=== PATIENT | male | born 1960 | race Caucasian/White ===

== ENCOUNTER 2018-07-14 05:32 | Inpatient (IN) | payer MEDICARE, MEDICAID ==
[2018-07-06 17:02] LABS: BASOPHILS % (AUTO) 0.4 % (0-1); EOSINOPHILS # (AUTO) 0.2 X10'3 (0-0.9); EOSINOPHILS % (AUTO) 2.3 % (0-6); LYMPHOCYTES % (AUTO) 34.3 % (21-51); MEAN CORPUSCULAR HEMOGLOBIN 29.4 PG (27.0-31.0); MEAN CORPUSCULAR HGB CONC 32.8 g/dL (33.0-36.5); MEAN CORPUSCULAR VOLUME 89.7 FL (78-98); MEAN PLATELET VOLUME 8.5 FL (7.4-10.4); MONOCYTES # (AUTO) 0.7 X10'3 (0-0.9); MONOCYTES % (AUTO) 7.6 % (2-12); NEUTROPHILS # (AUTO) 4.9 X10'3 (1.8-7.7); NEUTROPHILS % (AUTO) 55.4 % (42-75); PRE OP HEMOGLOBIN 12.8 g/dL (14.0-17.9); PRE OP PLATELET COUNT 192 X10'3 (140-440); RED BLOOD COUNT 4.35 X10'6 (4.70-6.10); RED CELL DISTRIBUTION WIDTH 15.3 % (11.5-14.5)
[2018-07-06 17:18] LABS: ALBUMIN 3.8 G/DL (3.4-5.0); ALBUMIN/GLOBULIN RATIO 1.1 (1.1-1.5); ALKALINE PHOSPHATASE 77 IU/L (46-116); BLOOD UREA NITROGEN 24 MG/DL (7-18); BUN/CREATININE RATIO 20.7 (5.4-32.0); CALCIUM 9.3 MG/DL (8.5-10.1); CHLORIDE 106 MMOL/L (99-107); CREATININE 1.16 MG/DL (0.60-1.10); PRE OP ALT 24 U/L (30-65); PRE OP ANION GAP 7 (8-16); PRE OP AST 14 U/L (10-37); PRE OP BILIRUB, TOTAL 0.2 MG/DL (0.0-1.0); PRE OP GLUCOSE 67 MG/DL (70-104); PRE OP POTASSIUM 4.4 MMOL/L (3.4-5.1); PRE OP SODIUM 144 MMOL/L (135-145); TOTAL CARBON DIOXIDE 31.3 MMOL/L (24-32); TOTAL PROTEIN 7.2 G/DL (6.4-8.2); eGFR 64 ML/MIN
[2018-07-06 17:22] LABS: HEMOGLOBIN A1C 6.9 % (4.5-6.2)
[2018-07-06 17:54] LABS: PRE OP INR 1.1 INR; PRE OP PROTIME 10.7 SECONDS (9.0-12.0)
[~2018-07-14] VITALS: Ht 182.9 cm; Wt 117.3 kg
[2018-07-14] VITALS (28 sets, daily range): BP systolic 89–178; BP diastolic 46–96
[~2018-07-14 05:32] MED LIST: ALBU8.5H8 INH; ASPI-1265 PO; ATOR40TA PO; CHOL2000 PO; DOCUMENT DATE & TIME OF BETA-BLOCKER PO ONE; DOL10T PO; GLIM4TAB79 PO; HYDR-4384 PO; INUL1.5T3; LANTUS SQ; MAGN400C PO; METO-539 PO; PANT40TA4 PO; PARO20TA6 PO; TACR0.5P PO; TACR1CAP PO; TRAZ-219 PO; TRAZ150T78 PO; VANCOMYCIN INJ 1000 MG in NORMAL SALINE 250ml IV.SOLN IV ONE; albuterol 2.5 MG/3 ML nebule NEB ONE; cefazolin/dext.iso 2gm/100 ML IV ONE; famotidine 20mg tablet PO ONE; ringers solution, lacted 1,000 ML IV SCH; tranexamic acid inj. 1,200 MG in normal saline 100ml IV soln 100 ML IV ONE
[2018-07-14] MEDS ORDERED: LIDOcaine 1% (10mg/ml) 2ml vial ONE (05:47)
[2018-07-14] MEDS ORDERED: metoprolol tartrate 25mg tablet PO STA (06:08)
[2018-07-14] MEDS ORDERED: ROPIVAcaine 0.5% (5mg/ml) 30ml vial ONE (07:43)
[2018-07-14] MEDS ORDERED: tetracaine 1% (10mg/ml) pres. free inj. ONE (07:43)
[2018-07-14] MEDS ORDERED: MIDAZolam 1mg/ml 10ml vial ONE (07:46)
[2018-07-14] MEDS ORDERED: fentaNYL/PF 50MCG/1 ML 2ML syringe ONE (07:47)
[2018-07-14] MEDS ORDERED: ROPIVAcaine inj 200 MG in normal saline 100ml IV soln 60 ML IU ONE (08:30)
[2018-07-14] MEDS ORDERED: ringers solution, lacted 1,000 ML IV SCH ×2 (09:24→12:15)
[2018-07-14] MEDS ORDERED: ondansetron/PF 4mg/2ml inj IV PRN ×3 (09:25→13:55)
[2018-07-14] MEDS ORDERED: proCHLORperazine 10 MG/2 ml inj IV PRN (09:25)
[2018-07-14] MEDS ORDERED: meperidine/PF 25mg/ml syringe IV PRN ×3 (09:25)
[2018-07-14] MEDS ORDERED: morphine 4 MG/ML inj SYRINge IV PRN ×2 (09:25)
[2018-07-14] MEDS ORDERED: propofol inj 20 ML IV ONE ×2 (10:11)
--- NOTE | 2018-07-14 11:21 | NUR ---
Received from OR via , accompanied by Anesthesiologist DR MAHER and report given by Anesthesiolgist. AWAKENS TO VOICE. VITALS STABLE. DRESSING DI. VANIA KNEE PAIN. SENSATION AT THE HIPS. MAYORGA WITH CLEAR URINE.
[2018-07-14] MEDS: ROPIVAcaine 0.2%/PF PAIN PUMP 400 ML IJ SCH (12:04)
[2018-07-14] MEDS ORDERED: hydrALAZINE 20mg/ml inj. IV PRN (12:15)
[2018-07-14] MEDS ORDERED: HYDROmorphone inj. 0.5 MG/0.5 ML DISP.SYRIN IV PRN (13:55)
[2018-07-14] MEDS ORDERED: bisacodyl 10mg suppository rectal RC PRN (13:55)
[2018-07-14] MEDS ORDERED: HYDROCODONE BIT PO PRN (13:55)
[2018-07-14] MEDS ORDERED: acetaminophen 325mg tablet PO PRN (13:55)
[2018-07-14] MEDS ORDERED: ACETAMINOPHEN PO PRN (13:55)
[2018-07-14] MEDS ORDERED: diphenhydrAMINE 25mg capsule PO PRN ×2 (13:55)
[2018-07-14] MEDS ORDERED: HYDROmorphone 1 mg/ml syringe IV PRN (13:55)
[2018-07-14] MEDS ORDERED: magnesium hydroxide 30ml (MOM) UD suspension PO PRN (13:55)
[2018-07-14] MEDS ORDERED: non-formulary drug (Albuterol Sulfate (Proair Hfa) 2 PUFFS) INH PRN (13:55)
[2018-07-14] MEDS ORDERED: oxyCODONE IR 5mg (immed. release) tablet PO PRN (13:55)
--- NOTE | 2018-07-14 14:00 | NUR ---
Patient in room ORTHO 4013. I have received report from Jimmy APODACA in recovery, and had the opportunity to ask questions and assume patient care.
--- NOTE | 2018-07-14 14:03 | NUR ---
Patient in room PAS IN 900. I have received report from CONSTANZA Marquez in recovery, and had the opportunity to ask questions and assume patient care.
[2018-07-14] MEDS ORDERED: albuterol 2.5 MG/3 ML nebule NEB PRN (14:10)
--- NOTE | 2018-07-14 14:11 | NUR ---
Report called to receiving nurse. Transferred via BED Belongings . Special Issues communicated to receiving nurse. AWAKE AND ORIENTED. VITALS STABLE. DRESSING DI. STATES PAIN IMPROVING. STARTING TO MOVE LEGS. TO ORTHO RM 4013B AT THIS TIME.
[2018-07-14] MEDS ORDERED: tranexamic acid inj. 1,200 MG in normal saline 100ml IV soln 100 ML IV ONE (14:45)
[2018-07-14] MEDS: acetaminophen 325mg tablet PO SCH ×2 (14:54→20:14)
[2018-07-14] MEDS: ketorolac tromethamine 15mg/ml inj. IV SCH ×2 (14:54→19:55)
[2018-07-14] MEDS: potassium cl 20mEq in 1/2 NS 1,000 ML IV SCH (17:21)
[2018-07-14] MEDS: ceFAZolin 1GM/D5W- ADD-VANTAGE 50 ML IV SCH (17:22)
--- NOTE | 2018-07-14 18:19 | NUR ---
Problems reprioritized. Patient report given, questions answered & plan of care reviewed with Faina Melendez RN.
[2018-07-14] MEDS: magnesium oxide 400mg tablet PO SCH (19:53)
[2018-07-14] MEDS ORDERED: non-formulary drug (Magnesium Oxide (Magnesium) 1 CAP) PO SCH (20:00)
[2018-07-14] MEDS ORDERED: vancomycin/NS 1 GM ADD-VANTAGE 250 ML IV SCH (20:00)
[2018-07-14] MEDS ORDERED: methadone 10mg tablet PO SCH (20:00)
[2018-07-14] MEDS: tacrolimus anhydrous 1mg capsule PO SCH (20:05)
[2018-07-14] MEDS: sennosides 8.6mg tablet PO SCH (20:13)
[2018-07-14] MEDS: atorvastatin 20mg tablet PO SCH (20:14)
[2018-07-14] MEDS: gabapentin 300mg capsule PO SCH (20:14)
[2018-07-14] MEDS: traZODone 150mg tablet PO SCH (20:16)
[2018-07-14] MEDS ORDERED: traZODone 150mg tablet PO SCH (21:00)
[2018-07-14] MEDS ORDERED: TRAZODONE HCL PO SCH (21:00)
[2018-07-14] MEDS ORDERED: non-formulary drug (Atorvastatin Calcium* (Lipitor*) 0.5 TABLET) PO SCH (21:00)
--- NOTE | 2018-07-14 21:36 | NUR ---
Patient in room ORTHO 4013. I have received report from Alma Delia APODACA and had the opportunity to ask questions and assume patient care. Addendum: 07/14/18 at 9629 by Carmen Dubose RN Received report at [id number]
--- NOTE | 2018-07-14 23:00 | NUR ---
Pt's berman catheter DC'd. Pt tolerated well. Pericare provided. No pain or signs of infection.
[2018-07-15] MEDS: ceFAZolin 1GM/D5W- ADD-VANTAGE 50 ML IV SCH (00:57)
[2018-07-15] MEDS: acetaminophen 325mg tablet PO SCH ×4 (01:59→19:20)
[2018-07-15] MEDS: ketorolac tromethamine 15mg/ml inj. IV SCH ×2 (02:01→08:18)
[2018-07-15 02:09] VITALS: BP 98/45
[2018-07-15] MEDS: potassium cl 20mEq in 1/2 NS 1,000 ML IV SCH ×3 (03:45→12:40)
[2018-07-15] MEDS: oxyCODONE IR 5mg (immed. release) tablet PO PRN (05:32)
[2018-07-15] MEDS: ROPIVAcaine 0.2%/PF PAIN PUMP 400 ML IJ SCH (05:33)
--- NOTE | 2018-07-15 05:34 | NUR ---
Increased ON-Q from 4 to 6.
[2018-07-15 06:00] VITALS: BP 92/41
--- NOTE | 2018-07-15 06:10 | NUR ---
Patient in room ORTHO 4013. I have received report from CONSTANZA Morales and had the opportunity to ask questions and assume patient care.
--- NOTE | 2018-07-15 06:28 | NUR ---
Problems reprioritized. Patient report given to Alma Delia APODACA, questions answered & plan of care reviewed with .
--- NOTE | 2018-07-15 06:30 | NUR ---
I have reviewed and agree with all interventions, assessments performed and documented by CONSTANZA Morales.
--- NOTE | 2018-07-15 06:30 | NUR ---
I have reviewed and agree with all medications administered and interventions performed by preceptor CONSTANZA Morales.
[2018-07-15 06:46] LABS: BASOPHILS % (AUTO) 0.2 % (0-1); EOSINOPHILS # (AUTO) 0.1 X10'3 (0-0.9); EOSINOPHILS % (AUTO) 1.4 % (0-6); HEMOGLOBIN 10.3 g/dl (14.0-17.9); LYMPHOCYTES # (AUTO) 2.1 X10'3 (1.1-4.8); LYMPHOCYTES % (AUTO) 20.1 % (21-51); MEAN CORPUSCULAR HEMOGLOBIN 29.9 PG (27.0-31.0); MEAN CORPUSCULAR HGB CONC 33.2 g/dL (33.0-36.5); MEAN CORPUSCULAR VOLUME 90.1 FL (78-98); MEAN PLATELET VOLUME 8.8 FL (7.4-10.4); MONOCYTES % (AUTO) 9.8 % (2-12); NEUTROPHILS % (AUTO) 68.5 % (42-75); PLATELET COUNT 150 X10'3 (140-440); RED BLOOD COUNT 3.44 X10'6 (4.70-6.10); RED CELL DISTRIBUTION WIDTH 15.3 % (11.5-14.5); WHITE BLOOD COUNT 10.2 X10'3 (4.5-11.0)
[2018-07-15 07:05] LABS: ANION GAP 6 (8-16); CHLORIDE 105 MMOL/L (99-107); POTASSIUM 5.1 MMOL/L (3.5-5.1); SODIUM 138 MMOL/L (135-145)
[2018-07-15] MEDS: PARoxetine 10mg tablet PO SCH (08:00)
[2018-07-15] MEDS ORDERED: non-formulary drug (Cholecalciferol (Vitamin D3) (Vitamin D-3) 2,000 UNIT) PO SCH (08:00)
[2018-07-15] MEDS: aspirin 81mg tab.chew PO SCH (08:00)
[2018-07-15] MEDS ORDERED: TACROLIMUS ANHYDROUS PO SCH (08:00)
[2018-07-15] MEDS: methadone 10mg tablet PO SCH (08:18)
[2018-07-15] MEDS: magnesium oxide 400mg tablet PO SCH ×2 (08:18→19:20)
[2018-07-15] MEDS: gabapentin 300mg capsule PO SCH ×3 (08:18→21:26)
[2018-07-15] MEDS: tacrolimus anhydrous 1mg capsule PO SCH ×2 (08:19→21:26)
[2018-07-15] MEDS: pantoprazole 40mg Tablet.DR PO SCH (08:20)
[2018-07-15] MEDS: metoprolol succinate 25mg (24-HOUR) SR. Tablet PO SCH (08:20)
[2018-07-15] MEDS: vitamin D (cholecalciferol) 1,000 unit tablet PO SCH (08:21)
[2018-07-15] MEDS: insulin glargine (Lantus) pen - multi-dose SQ SCH (08:23)
[2018-07-15] MEDS: aspirin 325mg tablet PO SCH (08:24)
[2018-07-15 10:00] VITALS: BP 109/82
[2018-07-15] MEDS ORDERED: methadone 10mg tablet PO SCH ×3 (11:00→21:00)
--- NOTE | 2018-07-15 11:04 | NUR ---
DM consult: Patient's A1c is 6.9; DM ed not warranted at this time. Will continue to follow. Addendum: 07/15/18 at [address] Amended: Links added.
[2018-07-15 13:21] VITALS: BP 103/48
[2018-07-15 18:00] VITALS: BP 91/40
--- NOTE | 2018-07-15 18:25 | NUR ---
Patient in room ORTHO 4013B. I have received report from Alma Delia APODACA, and had the opportunity to ask questions and assume patient care.
[2018-07-15] MEDS: celeCOXIB 100mg capsule PO SCH (19:18)
--- NOTE | 2018-07-15 20:50 | NUR ---
Took over care of patient with Carmen APODACA who is on orientation at this time.
[2018-07-15] MEDS: atorvastatin 20mg tablet PO SCH (21:26)
[2018-07-15] MEDS: sennosides 8.6mg tablet PO SCH (21:26)
[2018-07-15] MEDS: traZODone 150mg tablet PO SCH (21:27)
[2018-07-15 22:00] VITALS: BP 121/54
[2018-07-16] MEDS: acetaminophen 325mg tablet PO SCH ×2 (02:39→08:22)
[2018-07-16 05:00] VITALS: BP 99/45
[2018-07-16] MEDS: oxyCODONE IR 5mg (immed. release) tablet PO PRN (05:13)
--- NOTE | 2018-07-16 06:05 | NUR ---
Patient in room ORTHO 4013. I have received report from CONSTANZA Morales and had the opportunity to ask questions and assume patient care.
[2018-07-16 06:23] LABS: BASOPHILS % (AUTO) 0.2 % (0-1); EOSINOPHILS # (AUTO) 0.1 X10'3 (0-0.9); EOSINOPHILS % (AUTO) 1.3 % (0-6); HEMATOCRIT 28.2 % (42.0-52.0); HEMOGLOBIN 9.6 g/dl (14.0-17.9); LYMPHOCYTES # (AUTO) 1.5 X10'3 (1.1-4.8); LYMPHOCYTES % (AUTO) 17.2 % (21-51); MEAN CORPUSCULAR HEMOGLOBIN 30.9 PG (27.0-31.0); MEAN CORPUSCULAR VOLUME 90.9 FL (78-98); MONOCYTES % (AUTO) 10.9 % (2-12); NEUTROPHILS # (AUTO) 6.2 X10'3 (1.8-7.7); NEUTROPHILS % (AUTO) 70.4 % (42-75); PLATELET COUNT 125 X10'3 (140-440); RED BLOOD COUNT 3.11 X10'6 (4.70-6.10); RED CELL DISTRIBUTION WIDTH 15.5 % (11.5-14.5); WHITE BLOOD COUNT 8.8 X10'3 (4.5-11.0)
[2018-07-16] MEDS ORDERED: dextrose ORAL solution 15 GM/59 ML bottle PO ONE (08:00)
[2018-07-16] MEDS: PARoxetine 10mg tablet PO SCH (08:00)
[2018-07-16] MEDS: aspirin 81mg tab.chew PO SCH (08:00)
[2018-07-16] MEDS: insulin glargine (Lantus) pen - multi-dose SQ SCH (08:00)
--- NOTE | 2018-07-16 08:05 | NUR ---
Pt's BG was 65, no hypo/hyperglycemic protocol, called MD, obtained order, oral glucose shot (one), pt already on oral diabetic medications
[2018-07-16] MEDS: celeCOXIB 100mg capsule PO SCH (08:20)
[2018-07-16] MEDS: methadone 10mg tablet PO SCH (08:20)
[2018-07-16] MEDS: pantoprazole 40mg Tablet.DR PO SCH (08:21)
[2018-07-16] MEDS: magnesium oxide 400mg tablet PO SCH (08:21)
[2018-07-16] MEDS: gabapentin 300mg capsule PO SCH (08:21)
[2018-07-16] MEDS: tacrolimus anhydrous 1mg capsule PO SCH (08:21)
[2018-07-16] MEDS: vitamin D (cholecalciferol) 1,000 unit tablet PO SCH (08:23)
[2018-07-16] MEDS: aspirin 325mg tablet PO SCH (08:23)
[2018-07-16] MEDS: metoprolol succinate 25mg (24-HOUR) SR. Tablet PO SCH (08:24)
--- NOTE | 2018-07-16 11:45 | NUR ---
Reviewed discharge instructions with pt. Pt verbalized understanding. All of pt's belongings were returned to pt. Pt is alert and oriented, no complaints of pain or discomfort at this time. Pt was wheeled downstairs to be driven home by family friend.
[2018-07-16] MEDS ORDERED: acetaminophen 325mg tablet PO PRN (13:55)
== END 2018-07-16 11:57 | disposition home or self-care (01) | DRG 467 ==
LOC: PAS IN 05:32 → EDSTATUS 10:30 → ORTHO 4S 14:00
PROVIDERS: ADMIT Orthopaedic Surgery; ATTEND Orthopaedic Surgery
PROC: 0SRC0J9 Replacement of Right Knee Joint with Synthetic Substitute, Cemented, Open Approach (ICD-10-PCS; 2018-07-14)
PROC: 8E0Y0CZ Robotic Assisted Procedure of Lower Extremity, Open Approach (ICD-10-PCS; 2018-07-14)
PROC: 8E0YXBZ Computer Assisted Procedure of Lower Extremity (ICD-10-PCS; 2018-07-14)
PROC: 3E0T3BZ Introduction of Anesthetic Agent into Peripheral Nerves and Plexi, Percutaneous Approach (ICD-10-PCS; 2018-07-14)
PROC: 0SPC0LZ Removal of Medial Unicondylar Synthetic Substitute from Right Knee Joint, Open Approach (ICD-10-PCS; principal; 2018-07-14 07:51)
DX: M17.11 Unilateral primary osteoarthritis, right knee (principal); D62 Acute posthemorrhagic anemia; Z94.4 Liver transplant status; F11.20 Opioid dependence, uncomplicated; E11.9 Type 2 diabetes mellitus without complications; E78.5 Hyperlipidemia, unspecified; K21.9 Gastro-esophageal reflux disease without esophagitis; F32.9 Major depressive disorder, single episode, unspecified; J44.9 Chronic obstructive pulmonary disease, unspecified; G89.29 Other chronic pain; Z96.651 Presence of right artificial knee joint
CPT/HCPCS: 36415; 71046; 80051; 80053; 82948; 83036; 85025; 85610; 85730; 87070; 94640; 94760; 97116; 97162; 97530; A6455; A7000; C1713; C1758; C1776; G0378; J0360; J0690; J1815; J1885; J2175; J2250; J2270; J2405; J2704; J2795; J3010; J3370; J3490; J7030; J7120; J7507

== ENCOUNTER 2021-01-13 13:05 | Emergency (ER) | payer MEDICARE, MEDICAID ==
[~2021-01-13] VITALS: Ht 185.4 cm; Wt 124.5 kg
[~2021-01-13 13:05] MED LIST changes: +ALBU8.5H17 INH; -ALBU8.5H8 INH; +BUDE10.2 INH; -DOCUMENT DATE & TIME OF BETA-BLOCKER PO ONE; -DOL10T PO; +GABA600T13 PO; +GLIM4TAB7 PO; -GLIM4TAB79 PO; +HYDR-3972 PO; -HYDR-4384 PO; -INUL1.5T3; +INUL1.5T3 PO; +METF500T PO; +MORP-92 PO; +MULT-1085 PO; -PANT40TA4 PO; +PANT40TA54 PO; -PARO20TA6 PO; -TACR0.5P PO; -TRAZ-219 PO; -VANCOMYCIN INJ 1000 MG in NORMAL SALINE 250ml IV.SOLN IV ONE; -albuterol 2.5 MG/3 ML nebule NEB ONE; -cefazolin/dext.iso 2gm/100 ML IV ONE; -famotidine 20mg tablet PO ONE; -ringers solution, lacted 1,000 ML IV SCH; -tranexamic acid inj. 1,200 MG in normal saline 100ml IV soln 100 ML IV ONE
[2021-01-13 13:12] VITALS: BP 123/89
[2021-01-13] MEDS ORDERED: IOHEXOL 12MG/ML oral solution 500 ML BOTTLE PO ONE ×2 (13:20→13:32)
[2021-01-13 13:44] LABS: BASOPHILS % (AUTO) 0.3 % (0-1); EOSINOPHILS # (AUTO) 0.2 X10'3 (0-0.9); EOSINOPHILS % (AUTO) 2.3 % (0-6); HEMATOCRIT 39.6 % (42.0-52.0); HEMOGLOBIN 13.3 g/dl (14.0-17.9); LYMPHOCYTES # (AUTO) 2.5 X10'3 (1.1-4.8); LYMPHOCYTES % (AUTO) 26.9 % (21-51); MEAN CORPUSCULAR HGB CONC 33.6 g/dL (33.0-36.5); MEAN CORPUSCULAR VOLUME 89.4 FL (78-98); MEAN PLATELET VOLUME 8.3 FL (7.4-10.4); MONOCYTES # (AUTO) 0.8 X10'3 (0-0.9); NEUTROPHILS # (AUTO) 5.9 X10'3 (1.8-7.7); NEUTROPHILS % (AUTO) 62.5 % (42-75); PLATELET COUNT 285 X10'3 (140-440); RED BLOOD COUNT 4.44 X10'6 (4.70-6.10); RED CELL DISTRIBUTION WIDTH 15.2 % (11.5-14.5); WHITE BLOOD COUNT 9.4 X10'3 (4.5-11.0)
[2021-01-13 13:54] LABS: ALANINE AMINOTRANSFERASE 27 U/L (12-78); ALBUMIN 3.8 G/DL (3.4-5.0); ALBUMIN/GLOBULIN RATIO 0.9 (1.1-1.5); ALKALINE PHOSPHATASE 84 IU/L (46-116); ANION GAP 10 (8-16); ASPARTATE AMINO TRANSFERASE 13 U/L (10-37); BILIRUBIN,TOTAL 0.3 MG/DL (0.1-1.0); BLOOD UREA NITROGEN 22 MG/DL (7-18); BUN/CREATININE RATIO 19.6 (5.4-32.0); CALCIUM 9.5 MG/DL (8.5-10.1); CHLORIDE 104 MMOL/L (99-107); CREATININE 1.12 MG/DL (0.60-1.10); GLUCOSE 167 MG/DL (70-104); LIPASE 66 U/L (73-393); POTASSIUM 4.5 MMOL/L (3.5-5.1); SODIUM 140 MMOL/L (135-145); TOTAL CARBON DIOXIDE 26.4 MMOL/L (24-32); TOTAL PROTEIN 7.9 G/DL (6.4-8.2); eGFR 66 ML/MIN
[2021-01-13 15:21] LABS: CLARITY,URINE CLOUDY (Clear); COLOR,URINE YELLOW (Yellow); GLUCOSE, URINE NEGATIVE (Neg); KETONES,URINE NEGATIVE (Neg); NITRITES, URINE NEGATIVE (Neg); OCCULT BLOOD,URINE NEGATIVE (Neg); PROTEIN,URINE TRACE mg/dl (Neg); UA COLLECTION TYPE CLN CATCH MIDSTREAM
[2021-01-13 15:22] LABS: LEUKOCYTE ESTERASE ,URINE NEGATIVE (Neg)
[2021-01-13 15:28] LABS: MUCUS STRANDS MODERATE /LPF (Neg); SQUAMOUS EPITHELIAL CELL,UR MODERATE /LPF (FEW)
[2021-01-13 15:29] LABS: BACTERIA,URINE 1+ /HPF (Neg); RBC,URINE 0-2 /HPF (0-2); WBC,URINE 0-4 /HPF (0-4)
[2021-01-13] MEDS ORDERED: morphine ER 15mg tablet PO SCH (17:05)
[2021-01-13] MEDS ORDERED: HYDROcodone/acetaminophen 10/325mg tab PO ONE (17:05)
[2021-01-13] MEDS ORDERED: morphine ER 15mg tablet PO ONE (17:10)
[2021-01-13] MEDS ORDERED: tacrolimus anhydrous 1mg capsule PO SCH (17:10)
[2021-01-13] MEDS ORDERED: iohexol 300mg/ml 100ml inj. ONE (17:20)
[2021-01-13] MEDS ORDERED: MESSAGE TO NURSING PO NR (19:09)
== END 2021-01-13 20:32 | disposition home or self-care (01) ==
LOC: ER 13:06
DX: K59.00 Constipation, unspecified (principal); R00.0 Tachycardia, unspecified; R10.13 Epigastric pain; I25.10 Atherosclerotic heart disease of native coronary artery without angina pectoris; E11.9 Type 2 diabetes mellitus without complications; F17.200 Nicotine dependence, unspecified, uncomplicated; Z94.4 Liver transplant status; Z79.899 Other long term (current) drug therapy; Z79.4 Long term (current) use of insulin; Z79.82 Long term (current) use of aspirin; Z88.8 Allergy status to other drugs, medicaments and biological substances
CPT/HCPCS: 36415; 74176; 74177; 80053; 81001; 83690; 85025; 99285; Q9967

== ENCOUNTER 2024-03-23 16:05 | Inpatient (IN) | payer MEDICARE, MEDICAID ==
[~2024-03-23] VITALS: Ht 185.4 cm; Wt 126.2 kg
[~2024-03-23 16:05] MED LIST changes: +GABA-1405 PO; -GABA600T13 PO
[2024-03-23 16:33] LABS: BASOPHILS % (AUTO) 0.2 % (0-1); EOSINOPHILS % (AUTO) 0.2 % (0-6); HEMATOCRIT 41.2 % (42.0-52.0); HEMOGLOBIN 13.1 g/dl (14.0-17.9); LYMPHOCYTES # (AUTO) 2.4 X10'3 (1.1-4.8); LYMPHOCYTES % (AUTO) 18.3 % (21-51); MEAN CORPUSCULAR HEMOGLOBIN 26.8 PG (27.0-31.0); MEAN CORPUSCULAR HGB CONC 31.7 g/dL (33.0-36.5); MEAN CORPUSCULAR VOLUME 84.7 FL (78-98); MONOCYTES # (AUTO) 1.2 X10'3 (0-0.9); NEUTROPHILS # (AUTO) 9.4 X10'3 (1.8-7.7); NEUTROPHILS % (AUTO) 72.3 % (42-75); PLATELET COUNT 284 X10'3 (140-440); RED BLOOD COUNT 4.87 X10'6 (4.70-6.10); RED CELL DISTRIBUTION WIDTH 17.2 % (11.5-14.5); WHITE BLOOD COUNT 12.9 X10'3 (4.5-11.0)
[2024-03-23 16:51] LABS: ALANINE AMINOTRANSFERASE 24 U/L (12-78); ALBUMIN 3.6 G/DL (3.4-5.0); ALBUMIN/GLOBULIN RATIO 0.8 (1.1-1.5); ALKALINE PHOSPHATASE 107 IU/L (46-116); ANION GAP 9 (8-16); ASPARTATE AMINO TRANSFERASE 20 U/L (10-37); BILIRUBIN,TOTAL 0.3 MG/DL (0.1-1.0); BLOOD UREA NITROGEN 24 MG/DL (7-18); BUN/CREATININE RATIO 21.4 (10.0-20.0); CALCIUM 9.3 MG/DL (8.5-10.1); CHLORIDE 100 MMOL/L (99-107); CREATININE 1.12 MG/DL (0.60-1.10); GLUCOSE 180 MG/DL (70-104); POTASSIUM 4.4 MMOL/L (3.5-5.1); SODIUM 141 MMOL/L (135-145); TOTAL CARBON DIOXIDE 31.8 MMOL/L (24-32); TOTAL PROTEIN 8.1 G/DL (6.4-8.2); eCRCL 74 ML/MIN; eGFR 66 ML/MIN
[2024-03-23] MEDS: methylPREDNISolone sod succ 125mg/2ml vial IV ONE (16:53)
[2024-03-23 16:58] LABS: PRO BRAIN NATRIURETIC PEPTIDE 1141 PG/ML (0-125)
[2024-03-23] MEDS: ipratropium/albuterol 3ml nebule NEB PRN (17:06)
[2024-03-23 17:09] VITALS: PULSE 92; RESP 18; O2SAT 91
[2024-03-23 17:15] VITALS: PULSE 93; RESP 22; O2SAT 96
[2024-03-23] MEDS ORDERED: magnesium sulf-water 4G/100mL 100 ML IV PRN (18:00)
[2024-03-23] MEDS ORDERED: ondansetron/PF 4mg/2ml inj IV PRN (18:00)
[2024-03-23] MEDS ORDERED: magnesium sulf-water 2g/50mL 50 ML IV PRN (18:00)
[2024-03-23] MEDS ORDERED: mag hydrox/Alum hydrox/simeth 30ml oral suspension PO PRN (18:00)
[2024-03-23] MEDS ORDERED: potassium Cl 40MEQ/1/2NS 520ml 520 ML IV PRN (18:00)
[2024-03-23] MEDS ORDERED: magnesium Cl slow-release 64mg tablet PO PRN (18:00)
[2024-03-23] MEDS ORDERED: magnesium hydroxide 30ml (MOM) UD suspension PO PRN (18:00)
[2024-03-23] MEDS ORDERED: potassium Cl 20 mEq SR tablet PO PRN ×2 (18:00)
[2024-03-23] MEDS ORDERED: acetaminophen 325mg tablet PO PRN ×2 (18:00)
[2024-03-23] MEDS ORDERED: albuterol 2.5 MG/3 ML nebule NEB PRN (18:00)
[2024-03-23] MEDS ORDERED: methylPREDNISolone sod succ/PF 40mg inj. IV SCH (18:15)
[2024-03-23] MEDS ORDERED: DEXTROSE 15 GM of carb/4 tabs (each vial/BOTTLE has 4 tablets) PO PRN ×2 (18:35)
[2024-03-23] MEDS ORDERED: dextrose 50%-water 50ml dispensing syringe IV PRN ×2 (18:35)
[2024-03-23] MEDS ORDERED: glucagon, human recombinant 1mg kit SUBCUT PRN (18:35)
[2024-03-23] MEDS: PERFLUTREN PROTEIN-A MICROSPHR (Optison) 0.22 MG/ML 3ML VIAL IV ONE (18:39)
[2024-03-23 18:40] LABS: APTT 31 SECONDS (22-32); D-DIMER 0.39 MG/L FEU (0-0.50); INR 1.1 INR; PROTHROMBIN TIME 11.4 SECONDS (9.0-12.0)
[2024-03-23] MEDS: azithromycin 250mg tablet PO SCH (18:52)
[2024-03-23] MEDS: CefTRIAXone/D5W-Rocephin 1gm 50 ML IV ONE (18:52)
[2024-03-23 19:18] LABS: BILIRUBIN,URINE NEGATIVE (Neg); CLARITY,URINE CLEAR (Clear); COLOR,URINE YELLOW (Yellow); GLUCOSE, URINE NEGATIVE (Neg); KETONES,URINE NEGATIVE (Neg); LEUKOCYTE ESTERASE ,URINE NEGATIVE (Neg); NITRITES, URINE NEGATIVE (Neg); OCCULT BLOOD,URINE TRACE-INTACT (Neg); PROTEIN,URINE >=300 mg/dl (Neg)
[2024-03-23 19:25] LABS: SQUAMOUS EPITHELIAL CELL,UR FEW /LPF (FEW); UA COLLECTION TYPE CLN CATCH MIDSTREAM
[2024-03-23 19:26] LABS: BACTERIA,URINE 3+ /HPF (Neg); HYALINE CASTS 0-3 /LPF (NEGATIVE); MUCUS STRANDS FEW /LPF (Neg); RBC,URINE 0-2 /HPF (0-2); WBC,URINE 0-4 /HPF (0-4)
[2024-03-23] MEDS: K and/or MAG REPLACEMENT MC SCH (20:33)
[2024-03-23] MEDS: docusate sod 100mg capsule PO SCH (20:37)
[2024-03-23] MEDS: aspirin 81mg, enteric-coated 1 TAB TABLET.DR PO SCH (20:37)
[2024-03-23] MEDS: normal saline 500ml IV soln 500 ML IV ONE (20:38)
[2024-03-23] MEDS ORDERED: UMEC62.5 INH (20:52)
[2024-03-23] MEDS ORDERED: AMLO2.5T2 PO (20:52)
[2024-03-23] MEDS ORDERED: LANTUS SUBCUT (20:52)
[2024-03-23 21:15] LABS: CREATININE 1.17 MG/DL (0.60-1.10); eCRCL 71 ML/MIN; eGFR 63 ML/MIN
[2024-03-23] MEDS: tacrolimus anhydrous 1mg capsule PO ONE (21:53)
[2024-03-23] MEDS: atorvastatin 20mg tablet PO SCH (21:55)
[2024-03-23] MEDS: pantoprazole 40 MG vial IV SCH (21:56)
[2024-03-23] MEDS: INSULIN LISPRO 100 UNIT/ML INSULN.PEN MULTI-DOSE SQ SCH (21:57)
[2024-03-23] MEDS: insulin glargine (Lantus) pen - multi-dose SQ SCH (21:58)
[2024-03-23] MEDS ORDERED: MIRT45TA83 (22:49)
[2024-03-23] MEDS: ipratropium/albuterol 3ml nebule NEB SCH (22:51)
[2024-03-23 23:30] VITALS: PULSE 87; RESP 20; O2SAT 96
[2024-03-23 23:37] VITALS: PULSE 85; RESP 18
[2024-03-23] MEDS: methylPREDNISolone sod succ/PF 40mg inj. IV SCH (23:59)
[2024-03-24] VITALS (19 sets, daily range): BP systolic 102–189; BP diastolic 56–81; PULSE 74–96; RESP 18–23; TEMP 97.4–98.4; O2SAT 92–98
[2024-03-24] MEDS: HYDROmorphone inj. 0.5 MG/0.5 ML DISP.SYRIN IV PRN
[2024-03-24] MEDS: mirtazapine 15mg tablet PO ONE
[2024-03-24] MEDS: heparin, porcine 5000 units/ml vial SQ SCH (00:31)
[2024-03-24 07:22] LABS: BASOPHILS % (AUTO) 0.1 % (0-1); EOSINOPHILS % (AUTO) 0 % (0-6); HEMOGLOBIN 11.9 g/dl (14.0-17.9); LYMPHOCYTES # (AUTO) 0.9 X10'3 (1.1-4.8); LYMPHOCYTES % (AUTO) 7.9 % (21-51); MEAN CORPUSCULAR HEMOGLOBIN 27.2 PG (27.0-31.0); MEAN CORPUSCULAR HGB CONC 32.2 g/dL (33.0-36.5); MEAN CORPUSCULAR VOLUME 84.5 FL (78-98); MEAN PLATELET VOLUME 8.6 FL (7.4-10.4); MONOCYTES # (AUTO) 0.2 X10'3 (0-0.9); MONOCYTES % (AUTO) 1.9 % (2-12); NEUTROPHILS # (AUTO) 9.8 X10'3 (1.8-7.7); NEUTROPHILS % (AUTO) 90.1 % (42-75); PLATELET COUNT 249 X10'3 (140-440); RED BLOOD COUNT 4.38 X10'6 (4.70-6.10); RED CELL DISTRIBUTION WIDTH 17.4 % (11.5-14.5); WHITE BLOOD COUNT 10.8 X10'3 (4.5-11.0)
[2024-03-24 07:23] LABS: APTT 29 SECONDS (22-32); D-DIMER 0.31 MG/L FEU (0-0.50); INR 1.1 INR; PROTHROMBIN TIME 11.1 SECONDS (9.0-12.0)
[2024-03-24] MEDS: metoprolol succinate 25mg (24-HOUR) SR. Tablet PO SCH (08:00)
[2024-03-24 08:24] LABS: ALANINE AMINOTRANSFERASE 26 U/L (12-78); ALBUMIN 3.3 G/DL (3.4-5.0); ALBUMIN/GLOBULIN RATIO 0.7 (1.1-1.5); ALKALINE PHOSPHATASE 100 IU/L (46-116); ANION GAP 7 (8-16); ASPARTATE AMINO TRANSFERASE 29 U/L (10-37); BILIRUBIN,TOTAL 0.3 MG/DL (0.1-1.0); BLOOD UREA NITROGEN 33 MG/DL (7-18); BUN/CREATININE RATIO 27.3 (10.0-20.0); C-REACTIVE PROTEIN 5.21 MG/DL (0.0-0.5); CHLORIDE 101 MMOL/L (99-107); CREATININE 1.21 MG/DL (0.60-1.10); GLUCOSE 299 MG/DL (70-104); MAGNESIUM 2.1 MG/DL (1.5-2.4); POTASSIUM 4.9 MMOL/L (3.5-5.1); SODIUM 139 MMOL/L (135-145); TOTAL CARBON DIOXIDE 31.2 MMOL/L (24-32); eCRCL 69 ML/MIN; eGFR 60 ML/MIN
[2024-03-24] MEDS ORDERED: aspirin 81mg tab.chew PO SCH (11:30)
[2024-03-24] MEDS: CefTRIAXone/D5W-Rocephin 1gm 50 ML IV SCH (11:35)
[2024-03-24] MEDS: gabapentin 300mg capsule PO SCH (15:21)
[2024-03-24] MEDS ORDERED: non-formulary drug (Atorvastatin Calcium* (Lipitor*) 0.5 TABLET) PO SCH (21:00)
[2024-03-24] MEDS: mirtazapine 15mg tablet PO SCH (21:01)
[2024-03-24] MEDS: tacrolimus anhydrous 1mg capsule PO SCH (21:01)
[2024-03-24] MEDS: insulin glargine (Lantus) pen - multi-dose SQ SCH (21:12)
[2024-03-24] MEDS: normal saline 1000ml 1,000 ML IV SCH (21:20)
[2024-03-25] VITALS (19 sets, daily range): BP systolic 149–194; BP diastolic 67–99; PULSE 73–89; RESP 18–23; TEMP 97.1–98.4; O2SAT 90–97
[2024-03-25 07:26] LABS: BASOPHILS % (AUTO) 0.1 % (0-1); EOSINOPHILS % (AUTO) 0 % (0-6); HEMATOCRIT 37.7 % (42.0-52.0); HEMOGLOBIN 12.1 g/dl (14.0-17.9); LYMPHOCYTES # (AUTO) 1.3 X10'3 (1.1-4.8); LYMPHOCYTES % (AUTO) 9.7 % (21-51); MEAN CORPUSCULAR HEMOGLOBIN 27.1 PG (27.0-31.0); MEAN CORPUSCULAR HGB CONC 32.1 g/dL (33.0-36.5); MEAN CORPUSCULAR VOLUME 84.3 FL (78-98); MEAN PLATELET VOLUME 8.5 FL (7.4-10.4); MONOCYTES # (AUTO) 0.6 X10'3 (0-0.9); MONOCYTES % (AUTO) 4.4 % (2-12); NEUTROPHILS # (AUTO) 11.2 X10'3 (1.8-7.7); NEUTROPHILS % (AUTO) 85.8 % (42-75); PLATELET COUNT 275 X10'3 (140-440); RED BLOOD COUNT 4.47 X10'6 (4.70-6.10); WHITE BLOOD COUNT 13.1 X10'3 (4.5-11.0)
[2024-03-25 07:59] LABS: ALANINE AMINOTRANSFERASE 41 U/L (12-78); ALBUMIN 3.4 G/DL (3.4-5.0); ALBUMIN/GLOBULIN RATIO 0.8 (1.1-1.5); ALKALINE PHOSPHATASE 87 IU/L (46-116); ANION GAP 7 (8-16); ASPARTATE AMINO TRANSFERASE 63 U/L (10-37); BILIRUBIN,TOTAL 0.2 MG/DL (0.1-1.0); BLOOD UREA NITROGEN 32 MG/DL (7-18); BUN/CREATININE RATIO 28.3 (10.0-20.0); CALCIUM 9.2 MG/DL (8.5-10.1); CHLORIDE 104 MMOL/L (99-107); CREATININE 1.13 MG/DL (0.60-1.10); GLUCOSE 185 MG/DL (70-104); POTASSIUM 4.4 MMOL/L (3.5-5.1); SODIUM 143 MMOL/L (135-145); TOTAL CARBON DIOXIDE 32.4 MMOL/L (24-32); TOTAL PROTEIN 7.5 G/DL (6.4-8.2); eCRCL 74 ML/MIN; eGFR 65 ML/MIN
[2024-03-25] MEDS ORDERED: INULIN PO SCH (08:00)
[2024-03-25 08:38] LABS: APTT 27 SECONDS (22-32); INR 1.1 INR; PROTHROMBIN TIME 11.2 SECONDS (9.0-12.0)
[2024-03-25 11:56] LABS: C-REACTIVE PROTEIN 2.08 MG/DL (0.0-0.5); PRO BRAIN NATRIURETIC PEPTIDE 610 PG/ML (0-125)
[2024-03-25] MEDS: amLODIPine 5mg tablet PO SCH (12:34)
[2024-03-25] MEDS: cholecalciferol (vitamin D3) 1,000 unit (25mcg) tablet PO SCH (12:35)
[2024-03-25] MEDS: pantoprazole 40mg Tablet.DR PO SCH (12:47)
[2024-03-25] MEDS: INSULIN LISPRO 100 UNIT/ML INSULN.PEN MULTI-DOSE SQ SCH (13:03)
[2024-03-25] MEDS: lactose-reduced food (Ensure Enlive) - 237ml bottle PO SCH (18:00)
[2024-03-25] MEDS: insulin glargine (Lantus) pen - multi-dose SQ SCH (21:34)
[2024-03-26] VITALS (14 sets, daily range): BP systolic 151–190; BP diastolic 63–75; PULSE 71–96; RESP 15–32; TEMP 97.5–97.8; O2SAT 91–97
[2024-03-26] MEDS: HYDROcodone/acetaminophen 10/325mg tab PO ONE (00:41)
[2024-03-26] MEDS: hydrALAZINE 20mg/ml inj. IV PRN (06:07)
[2024-03-26 07:00] LABS: APTT 24 SECONDS (22-32); PROTHROMBIN TIME 10.8 SECONDS (9.0-12.0)
[2024-03-26 07:12] LABS: ALANINE AMINOTRANSFERASE 58 U/L (12-78); ALBUMIN 3.5 G/DL (3.4-5.0); ALBUMIN/GLOBULIN RATIO 0.8 (1.1-1.5); ALKALINE PHOSPHATASE 86 IU/L (46-116); ANION GAP 4 (8-16); ASPARTATE AMINO TRANSFERASE 57 U/L (10-37); BLOOD UREA NITROGEN 28 MG/DL (7-18); BUN/CREATININE RATIO 27.2 (10.0-20.0); CALCIUM 9.3 MG/DL (8.5-10.1); CHLORIDE 105 MMOL/L (99-107); CREATININE 1.03 MG/DL (0.60-1.10); GLUCOSE 195 MG/DL (70-104); MAGNESIUM 1.9 MG/DL (1.5-2.4); SODIUM 143 MMOL/L (135-145); TOTAL CARBON DIOXIDE 34.1 MMOL/L (24-32); TOTAL PROTEIN 7.7 G/DL (6.4-8.2); eCRCL 81 ML/MIN; eGFR 72 ML/MIN
[2024-03-26 07:15] LABS: POTASSIUM 5.1 MMOL/L (3.5-5.1)
[2024-03-26 07:45] LABS: BASOPHILS % (AUTO) 0.1 % (0-1); EOSINOPHILS % (AUTO) 0 % (0-6); HEMATOCRIT 39.7 % (42.0-52.0); HEMOGLOBIN 12.8 g/dl (14.0-17.9); LYMPHOCYTES # (AUTO) 1.3 X10'3 (1.1-4.8); LYMPHOCYTES % (AUTO) 10.8 % (21-51); MEAN CORPUSCULAR HEMOGLOBIN 27.1 PG (27.0-31.0); MEAN CORPUSCULAR HGB CONC 32.1 g/dL (33.0-36.5); MEAN CORPUSCULAR VOLUME 84.4 FL (78-98); MEAN PLATELET VOLUME 8.8 FL (7.4-10.4); MONOCYTES # (AUTO) 0.4 X10'3 (0-0.9); MONOCYTES % (AUTO) 3.6 % (2-12); NEUTROPHILS % (AUTO) 85.5 % (42-75); PLATELET COUNT 296 X10'3 (140-440); RED BLOOD COUNT 4.71 X10'6 (4.70-6.10); RED CELL DISTRIBUTION WIDTH 16.8 % (11.5-14.5); WHITE BLOOD COUNT 11.7 X10'3 (4.5-11.0)
[2024-03-26 07:49] LABS: BILIRUBIN,TOTAL 0.2 MG/DL (0.1-1.0)
[2024-03-26] MEDS ORDERED: METO-384 PO (09:53)
[2024-03-26 10:28] LABS: C-REACTIVE PROTEIN 1.02 MG/DL (0.0-0.5)
[2024-03-26] MEDS: HYDROcodone/acetaminophen 10/325mg tab PO PRN (14:13)
[2024-03-26] MEDS ORDERED: CEFD300C3 PO (16:35)
[2024-03-26] MEDS ORDERED: PRED10TA23 PO (16:35)
[2024-03-26] MEDS ORDERED: LACT1CAP26 PO (16:35)
[2024-03-26] MEDS ORDERED: insulin glargine (Lantus) pen - multi-dose SQ SCH (21:00)
== END 2024-03-26 17:35 | disposition home health service (06) | DRG 291 ==
LOC: ER 16:06 → ED HOLD 17:25 → PCU 3S 03-24 01:57
PROVIDERS: ADMIT Family Medicine; ATTEND Family Medicine
DX: I11.0 Hypertensive heart disease with heart failure (principal); I50.31 Acute diastolic (congestive) heart failure; N17.0 Acute kidney failure with tubular necrosis; J44.1 Chronic obstructive pulmonary disease with (acute) exacerbation; Z94.0 Kidney transplant status; Z94.4 Liver transplant status; I42.9 Cardiomyopathy, unspecified; I48.91 Unspecified atrial fibrillation; Z20.822 Contact with and (suspected) exposure to COVID-19; I25.10 Atherosclerotic heart disease of native coronary artery without angina pectoris; E11.9 Type 2 diabetes mellitus without complications; R09.02 Hypoxemia; Z88.5 Allergy status to narcotic agent; Z79.82 Long term (current) use of aspirin; Z79.899 Other long term (current) drug therapy; Z79.4 Long term (current) use of insulin; Z95.5 Presence of coronary angioplasty implant and graft; Z79.84 Long term (current) use of oral hypoglycemic drugs
CPT/HCPCS: 36415; 71045; 80053; 81001; 82565; 82948; 83036; 83605; 83735; 83880; 84145; 84484; 85025; 85379; 85610; 85730; 86140; 87040; 87081; 87502; 87503; 87811; 93005; 93306; 94640; 94760; 97116; 97161; 97530; 99285; A6258; G0378; J0360; J0696; J1171; J1644; J1815; J2470; J2919; J7030; J7040; J7507